=== PATIENT | female | born 1995 | race Two or more races ===

== ENCOUNTER 2018-12-07 19:13 | Emergency (ER) | payer SELFPAY ==
[~2018-12-07] VITALS: Ht 165.1 cm; Wt 54.4 kg
[2018-12-07 19:47] VITALS: BP 112/65
--- NOTE | 2018-12-07 19:49 | NUR ---
ED Nurse Note: Patient walk in to ED c/o discomfort and redness in bilateral eyes since last night. Patient states yesterday she had eyelashes put on with glue. Patient states irritation started then. Patient has no change in vision. Patient AOx4, VSS, ambulatory with steady gait, no s/s of acute distress noted at this time. Patient seen by ERCP at bedside.
--- NOTE | 2018-12-07 20:22 | Emergency Room Report ---
History of Present Illness General Chief Complaint: Eye Problems Source: Patient Present Illness HPI This patient states that she had artificial eyelashes extension placed yesterday. She states that when she woke up this morning she noted some redness in the lower part of her eyes. She denies discharge. She denies eye pain. She denies blurry vision. She denies swelling of the eyelids are around the insertion of the extension's. She has no other complaints. Allergies: Coded Allergies: No Known Allergies (Unverified , 12/07/18) Patient History Past Medical History: none, see triage record Social History: Denies: smoking, alcohol use, drug use Now: No Reviewed Nursing Documentation: PMH: Agreed; PSxH: Agreed Nursing Documentation-PMH Past Medical History: No Stated History Review of Systems All Other Systems: negative except mentioned in HPI Physical Exam Vital Signs Date Time Temp Pulse Resp B/P (MAP) Pulse Ox O2 Delivery O2 Flow Rate FiO2 12/07/18 19:38 98.4 74 18 112/65 99 Room Air Sp02 EP Interpretation: reviewed, normal General Appearance: no apparent distress, alert, GCS 15, non-toxic Head: normocephalic, atraumatic Eyes: bilateral eye PERRL, bilateral eye other - conjunctival erythema just superior to the lower lid line. No discharge. No periorbital swelling. ENT: hearing grossly normal, normal pharynx, no angioedema, normal voice Neck: normal inspection Respiratory: no respiratory distress, no retraction, no accessory muscle use, speaking full sentences Rectal: deferred Musculoskeletal: back normal, gait/station normal, normal range of motion, non- tender Neurologic: alert, oriented x3, responsive, motor strength/tone normal, sensory intact, speech normal Psychiatric: judgement/insight normal, memory normal, mood/affect normal, no suicidal/homicidal ideation Skin: normal color, no rash, warm/dry, well hydrated Medical Decision Making Diagnostic Impression: Primary Impression: Acute conjunctivitis of both eyes ER Course This patient has findings on exam consistent with a mild irritant conjunctivitis. I feel that this is secondary to the size of the eyelash extensions. I think this area is rubbing against her eye. The patient plans on having the extensions removed tomorrow morning. I do not feel that there is any bacterial viral etiology. The area is very localized and symmetrical consistent with more of an irritation. I will give the patient Ilotycin ointment to help protect her eye overnight and to provide comfort. The patient was instructed to have the eyelash extensions removed as soon as possible. The patient indicated understanding and intention to do so. Last Vital Signs Date Time Temp Pulse Resp B/P (MAP) Pulse Ox O2 Delivery O2 Flow Rate FiO2 12/07/18 19:47 98.4 76 18 112/65 99 Room Air Status: improved Disposition: HOME, SELF-CARE Condition: Improved Patient Instructions: Chemical Conjunctivitis Paulina Mae DO Dec 07, 2018 20:22
[2018-12-07] MEDS ORDERED: ERYTHROMYCIN3.5 GM BOTH EYES (20:40)
[2018-12-07 20:50] VITALS: BP 112/65
--- NOTE | 2018-12-07 20:51 | NUR ---
ER DISCHARGE NOTE: Patient is cleared to be discharged per ERMD, pt is aox4, on room air, with stable vital signs. pt was given dc and prescription instructions, pt was able to verbalize understanding, pt id band and iv site removed without complications. pt is able to ambulate with steady gait. pt took all belongings.
== END 2018-12-07 20:50 | disposition home or self-care (01) ==
LOC: EMR 20:11
DX: H10.33 Unspecified acute conjunctivitis, bilateral (principal)
CPT/HCPCS: 99281

== ENCOUNTER → 2019-04-17 | Emergency (ER) | payer SELFPAY ==
[~2019-04-17] VITALS: Ht 165.1 cm; Wt 54.4 kg
[~2019-04-17] MED LIST: ERYTHROMYCIN3.5 GM BOTH EYES; NAPROXEN500 M2 ORAL
[2019-04-17 20:05] VITALS: BP 103/68
--- NOTE | 2019-04-17 20:50 | NUR ---
ED Nurse Note: pt to CT
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
[2019-04-17 21:15] VITALS: BP 110/69
--- NOTE | 2019-04-17 21:15 | NUR ---
ER DISCHARGE NOTE: Patient is cleared to be discharged per ERMD, pt is aox4, on room air, with stable vital signs. pt was given dc and prescription instructions, pt was able to verbalize understanding, pt id band and iv site removed without complications. pt is able to ambulate with steady gait. pt took all belongings. Addendum: 04/17/19 at 2139 by KDEARING Error:pt did not have an IV
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
== END | disposition home or self-care (01) ==
LOC: EMR 20:28
DX: S20.219A Contusion of unspecified front wall of thorax, initial encounter (principal); Y04.2XXA Assault by strike against or bumped into by another person, initial encounter; Y92.9 Unspecified place or not applicable; Y99.0 Civilian activity done for income or pay
CPT/HCPCS: 99284

== ENCOUNTER 2019-04-26 06:09 | Emergency (ER) | payer OTHER ==
[~2019-04-26] VITALS: Ht 165.1 cm; Wt 54.4 kg
--- NOTE | 2019-04-26 06:35 | NUR ---
ED Nurse Note: Recieved pt on trupti from home, awake, alert and oriented x 4, pt here with c/o left wrist pain s/p injury at work last night, states was picking up something and heard wrist pop, no swelling or deformity noted, pt is inb ed texting on phone, pt grandmother at bedside, pt denies any other injuries or complaints.
[2019-04-26 07:00] VITALS: BP 109/71
--- NOTE | 2019-04-26 07:20 | Emergency Room Report ---
History of Present Illness General Chief Complaint: Upper Extremity Injury Source: Patient Present Illness HPI Patient presents with complaints of discomfort to her left wrist Patient reports that she was holding a trash bag up with both hands as she was attempting to put it inside of been There was some trauma that occurred with the lid not opening in the patient's left wrist essentially feeling a popping sensation Patient has pain to the lateral aspect of the left wrist Pain is worse with flexing and extending Denies any elbow pain denies any shoulder pain denies any other fall Allergies: Coded Allergies: No Known Allergies (Unverified , 12/07/18) Patient History Past Medical History: see triage record Last Menstrual Period: now Now: No Reviewed Nursing Documentation: PMH: Agreed; PSxH: Agreed Nursing Documentation-PMH Past Medical History: No Stated History Review of Systems All Other Systems: negative except mentioned in HPI Physical Exam Vital Signs Date Time Temp Pulse Resp B/P (MAP) Pulse Ox O2 Delivery O2 Flow Rate FiO2 04/26/19 06:17 97.9 68 18 114/74 (87) 98 Room Air Sp02 EP Interpretation: reviewed, normal General Appearance: well appearing, no apparent distress Head: normocephalic, atraumatic Eyes: bilateral eye PERRL, bilateral eye EOMI ENT: normal pharynx, no angioedema Neck: supple Respiratory: no respiratory distress, no retraction, no accessory muscle use Cardiovascular #1: regular rate, rhythm Musculoskeletal: other - Some discomfort to the lateral wrist distally, no obvious swelling or edema, neurovascularly intact patient has discomfort with attempting to flex or extend the wrist Neurologic: alert, oriented x3, responsive Skin: no rash Lymphatic: normal inspection Procedures Splinting Splinting : Consent: Verbal Location: Left wrist Pre-Made Type: velcro Splint: volar Pre-Proc Neuro Vasc Exam: normal Post-Proc Neuro Vasc Exam: normal Patient Tolerated: Well Complications: None Medical Decision Making Diagnostic Impression: Primary Impression: wrist sprain ER Course Given the history exam and presentation differentials including but not limited to fracture, dislocation, tendon injury considered X-ray imaging does not show any acute pathology given the patient's discomfort a splint was applied And patient will have close outpatient follow-up Other X-Ray Diagnostic Results Other X-Ray Diagnostic Results : X-Ray ordered: Left wrist # of Views/Limited Vs Complete: 3 View Indication: Pain EP Interpretation: Yes Interpretation: no dislocation, no soft tissue swelling, no fractures Impression: No acute disease Electronically Signed by: Christy Fowler DO Last Vital Signs Date Time Temp Pulse Resp B/P (MAP) Pulse Ox O2 Delivery O2 Flow Rate FiO2 04/26/19 06:17 97.9 68 18 114/74 (87) 98 Room Air Status: improved Disposition: HOME, SELF-CARE Condition: Improved Referrals: Your designated worker's comp Patient Instructions: Wrist Sprain, Wrist Pain, [id number] Additional Instructions: Patient is provided with the discharge instructions notified to follow up with primary doctor in the next 2-3 days otherwise return to the er with any worsening symptoms. Please note that this report is being documented using DRAGON technology. This can lead to erroneous entry secondary to incorrect interpretation by the dictating instrument. Christy Fowler DO Apr 26, 2019 07:19
[2019-04-26 07:21] VITALS: BP 114/74
--- NOTE | 2019-04-26 07:23 | NUR ---
ER DISCHARGE NOTE: Patient is cleared to be discharged per ERMD, pt is aox4, on room air, with stable vital signs. pt was given dc and prescription instructions, pt was able to verbalize understanding, pt id band removed without complications. pt is able to ambulate with steady gait. pt took all belongings.
--- NOTE | 2019-04-26 14:00 | Diagnostic Imaging Report ---
Indication: Left wrist pain Findings: 3 views of the left wrist were obtained. No acute fractures, malalignment, erosions or periostitis are identified. Soft tissues are unremarkable. Impression: No acute findings.
== END 2019-04-26 07:24 | disposition home or self-care (01) ==
LOC: EMR 07:00
DX: S63.502A Unspecified sprain of left wrist, initial encounter (principal); X58.XXXA Exposure to other specified factors, initial encounter; Y92.9 Unspecified place or not applicable
CPT/HCPCS: 29125; 99283